=== PATIENT | male | born 1940 | race American Indian/Alaskan Native ===

== ENCOUNTER 2016-11-07 04:19 | Inpatient (IN) | payer MEDICARE, OTHER ==
[2016-11-07 04:30] VITALS: BMI 31.8
--- NOTE | 2016-11-07 04:38 | ED PDOC ---
Arrival/HPI - General Chief Complaint: Back Pain Time Seen by Provider: 11/07/16 04:31 Historian: Patient - History of Present Illness Narrative History of Present Illness (Text): 11/07/16 04:38 Demond Laura is a 75 year old male, whose past medical history includes chronic back pain, who presents to the Emergency department complaining of worsening lower back pain. Patient states he has been experiencing lower back pain for the past few months for which he has been seen and evaluated by PMD. Patient states his lower back pain has worsened over the past 3 days and denies any relief with [id number] pain medication at home. Patient denies any chest pain, shortness of breath, nausea, vomiting, diarrhea, headache, dizziness, or any other complaints. PMD: Dr. Ashely Moise Symptom Onset: Gradual Symptom Course: Unchanged Activities at Onset: Rest, Light Context: Home Past Medical History - Provider Review Nursing Documentation Reviewed: Yes - Infectious Disease Hx of Infectious Diseases: None - Tetanus Immunization Tetanus Immunization: Unknown - Cardiac Hx Hypertension: Yes Hx Pacemaker: No - Neurological Hx Paralysis: No - HEENT Hx Glaucoma: Yes - Hematological/Oncological Hx Blood Transfusions: No Hx Blood Transfusion Reaction: No - Musculoskeletal/Rheumatological Hx Musculoskeletal Disorders: No - Gastrointestinal Other/Comment: colonoscopy - Genitourinary/Gynecological Hx Prostate Problems: Yes (prostate ca with seed implant) - Psychiatric Hx Emotional Abuse: No Hx Physical Abuse: No Hx Substance Use: No - Surgical History Hx Inguinal Hernia Repair: Yes - Anesthesia Hx Anesthesia Reactions: No Hx Malignant Hyperthermia: No - Suicidal Assessment Feels Threatened In Home Enviroment: No Family/Social History - Physician Review Nursing Documentation Reviewed: Yes Family/Social History: Unknown Family HX Smoking Status: Heavy Smoker > 10 Cigarettes Daily Hx Alcohol Use: Yes (shot of whisky once q2wks.) Hx Substance Use: No Hx Substance Use Treatment: No Allergies/Home Meds Allergies/Adverse Reactions: Allergies No Known Allergies Allergy (Verified 03/26/13 12:40) Home Medications: Home Meds Medication Instructions Recorded Confirmed Amlodipine Besylate 10 mg PO QAM 03/26/13 11/07/16 Aspirin [Aspirin Children's] 81 mg PO DAILY 03/26/13 11/07/16 Isosorbide Mononitrate [Imdur] 60 mg PO QAM 11/11/13 06/25/17 Lisinopril 20 mg PO QAM 03/26/13 11/07/16 Tamsulosin [Flomax] 0.4 mg PO DAILY 03/26/13 11/07/16 Atorvastatin [Lipitor] 20 mg PO DAILY 09/17/14 11/07/16 Review of Systems - Physician Review All systems were reviewed & negative as marked: Yes - Review of Systems Constitutional: Normal. absent: Fevers Eyes: Normal ENT: Normal Respiratory: Normal. absent: SOB, Cough Cardiovascular: Normal. absent: Chest Pain Gastrointestinal: Normal. absent: Abdominal Pain, Diarrhea, Nausea Genitourinary Male: Normal. absent: Dysuria, Frequency, Hematuria, Urinary Output Changes Musculoskeletal: Back Pain. absent: Neck Pain Skin: Normal. absent: Rash Neurological: Normal. absent: Headache, Dizziness Endocrine: Normal Hemo/Lymphatic: Normal Psychiatric: Normal Physical Exam Vital Signs Reviewed: Yes Vital Signs Temp Pulse Resp BP Pulse Ox 11/07/16 05:50 97.9 F 72 20 123/72 98 11/07/16 04:27 98.7 F 94 H 19 129/88 97 Temperature: Afebrile Blood Pressure: Normal Pulse: Regular Respiratory Rate: Normal Appearance: Positive for: Well-Appearing, Non-Toxic, Comfortable Pain Distress: None Mental Status: Positive for: Alert and Oriented X 3 - Systems Exam Head: Present: Atraumatic, Normocephalic Pupils: Present: PERRL Extroacular Muscles: Present: EOMI Conjunctiva: Present: Normal Mouth: Present: Moist Mucous Membranes Neck: Present: Normal Range of Motion Respiratory/Chest: Present: Clear to Auscultation, Good Air Exchange. No: Respiratory Distress, Accessory Muscle Use Cardiovascular: Present: Regular Rate and Rhythm, Normal S1, S2. No: Murmurs Abdomen: Present: Normal Bowel Sounds. No: Tenderness, Distention, Peritoneal Signs Back: Present: Normal Inspection. No: CVA Tenderness, Midline Tenderness, Paraspinal Tenderness Upper Extremity: Present: Normal Inspection. No: Cyanosis, Edema Lower Extremity: Present: Normal Inspection. No: Edema Neurological: Present: GCS=15, CN II-XII Intact, Speech Normal Skin: Present: Warm, Dry, Normal Color. No: Rashes Psychiatric: Present: Alert, Oriented x 3, Normal Insight, Normal Concentration Medical Decision Making ED Course and Treatment: 11/07/16 04:38 Impression: 75 year old male complaining of lower back pain. Differential Diagnosis include but are not limited to: chronic back pain vs. intractable back pain Plan: -- Flexeril -- Dilaudid -- Reassess and disposition Progress Notes: 11/07/16 04:57 [place] [employer] COMM[employer]ICATIONS reviewed, pt received 60 Acetaminophen/Codeine #3 on 10/21/2016. 11/07/16 05:30 On re-assessment, pt is still experiencing back pain. Dilaudid ordered. 11/07/16 05:[address] Perry, covering for Dr. Richardson, who is aware and agrees with plan. Accepts pt in to her service. Pt will go to [facility] observation for intractable back pain. Discussed hospital observation plan with pt, who is aware and verbalizes agreement. Labs, EKG ordered. - Lab Interpretations Lab Results: 11/07/16 06:10 11/07/16 06:10 Lab Results 11/07/16 06:10: Sodium 142, Potassium 3.8, Chloride 106, Carbon Dioxide 24, Anion Gap 16, BUN 14, Creatinine 0.9, Est GFR ( Amer) > 60, Est GFR (Non- Af Amer) > 60, Random Glucose 95, Calcium 10.1, Total Bilirubin 0.3, AST 34, ALT 35, Alkaline Phosphatase 90, Total Protein 7.8, Albumin 4.6, Globulin 3.3, Albumin/Globulin Ratio 1.4 11/07/16 06:10: WBC 4.7, RBC 4.77, Hgb 15.1, Hct 43.1, MCV 90.4, MCH 31.7, MCHC 35.0, RDW 14.2, Plt Count 256, MPV 9.1, Gran % 49.6 L, Lymph % (Auto) 38.2 H, [place] % (Auto) 8.4 H, Eos % (Auto) 3.4, Baso % (Auto) 0.4, Gran # 2.35, Lymph # 1.8, [place] # 0.4, Eos # 0.2, Baso # 0.02 - RAD Interpretation Radiology Orders: 11/07/16 07:39 CHEST,ABD,PEL W/IV&PO CONTRAST [CT] Urgent 11/08/16 11:53 BONE SCAN WHOLE BODY [NM] Routine - Medication Orders Current Medication Orders: Amlodipine Besylate (Norvasc) 10 mg PO DAILY [facility] Last Admin: 11/08/16 09:52 Dose: 10 mg Aspirin (Aspirin Chewable) 81 mg PO DAILY [facility] Last Admin: 11/08/16 09:52 Dose: 81 mg Atorvastatin Calcium (Lipitor) 20 mg PO DAILY [facility] Last Admin: 11/08/16 09:52 Dose: 20 mg Famotidine (Pepcid) 20 mg PO 1000,2200 [facility] Last Admin: 11/08/16 22:00 Dose: 20 mg Isosorbide Mononitrate (Imdur) 60 mg PO QAM [facility] Last Admin: 11/08/16 09:51 Dose: 60 mg Latanoprost (Xalatan Opht) 0 ml OU HS [facility] Last Admin: 11/08/16 22:00 Dose: 2.5 ml Lisinopril (Zestril) 20 mg PO DAILY [facility] Last Admin: 11/08/16 09:51 Dose: 20 mg Morphine Sulfate (Morphine) 2 mg IM Q4H PRN PRN Reason: Pain, severe (8-10) Oxycodone HCl (Oxycodone Immediate Release Tab) 20 mg PO Q4 PRN PRN Reason: Pain, moderate (4-7) Last Admin: 11/08/16 18:57 Dose: 20 mg Tamsulosin HCl (Flomax) 0.4 mg PO DAILY [facility] Last Admin: 11/08/16 09:51 Dose: 0.4 mg Discontinued Medications Barium Sulfate (Readi-Cat 2) Confirm Administered Dose 450 ml PO .STK-MED ONE Stop: 11/07/16 08:52 Cyclobenzaprine HCl (Flexeril) 10 mg PO STAT STA Stop: 11/07/16 04:43 Last Admin: 11/07/16 04:56 Dose: 10 mg Hydromorphone HCl (Dilaudid) 1 mg SC STAT STA Stop: 11/07/16 04:43 Last Admin: 11/07/16 04:56 Dose: 1 mg Hydromorphone HCl (Dilaudid) 2 mg SC STAT STA Stop: 11/07/16 05:31 Last Admin: 11/07/16 05:48 Dose: 2 mg Iohexol (Omnipaque 350 100 Ml) Confirm Administered Dose 350 mg .ROUTE .STK-MED ONE Stop: 06/25/17 12:26 Oxycodone HCl (Oxycodone Immediate Release Tab) 10 mg PO Q4 PRN PRN Reason: Pain, moderate (4-7) Last Admin: 11/08/16 07:47 Dose: 10 mg Re-Assess: ANNETTA Pain Assessment Document 11/08/16 08:42 [facility]Rec: 11/08/16 08:42 [facility] [id number][place] Pain Reassessment Is this a pain reassessment? Yes Sleep Is patient sleeping during reassessment? No Presence of Pain Presence of Pain Yes Pain Scale Used Pain Scale Used Numeric Description Intensity of Pain at present 5 - Scribe Statement The provider has reviewed the documentation as recorded by the Scribkarli Luna All medical record entries made by the Scribe were at my direction and personally dictated by me. I have reviewed the chart and agree that the record accurately reflects my personal performance of the history, physical exam, medical decision making, and the department course for this patient. I have also personally directed, reviewed, and agree with the discharge instructions and disposition. Disposition/Present on Arrival - Present on Arrival Any Indicators Present on Arrival: No History of DVT/PE: No History of Uncontrolled Diabetes: No Urinary Catheter: No History of Decub. Ulcer: No History Surgical Site Infection Following: None - Disposition Have Diagnosis and Disposition been Completed?: Yes Diagnosis: Intractable back pain Disposition: HOSPITALIZED Disposition Time: 05:50 Condition: GOOD
[2016-11-07] MEDS ORDERED: HYDROmorphone 1 mg/ml ISec SC STA (04:42)
[2016-11-07] MEDS ORDERED: HYDROmorphone 2 mg/ml ISec SC STA (05:30)
[2016-11-07 06:19] LABS: ADD MANUAL DIFF? NO
[2016-11-07 06:26] LABS: BASO # 0.02 K/mm3 (0.0-2.0); BASO % 0.4 % (0.0-3.0); EOS # 0.2 (0.0-0.7); EOS % 3.4 % (1.5-5.0); GRAN # 2.35 (1.4-6.5); GRAN % 49.6 % (50.0-68.0); HEMATOCRIT 43.1 % (42.0-52.0); LYMPH # 1.8 (1.2-3.4); LYMPH % 38.2 % (22.0-35.0); MEAN CELL VOLUME 90.4 fL (80.0-105.0); MEAN CORPUSCULAR HEMOGLOBIN 31.7 pg (25.0-35.0); MEAN PLATELET VOLUME 9.1 fl (7.0-11.0); MONO # 0.4 (0.1-0.6); MONO % 8.4 % (1.0-6.0); PLATELET COUNT 256 10^3/uL (120.0-450.0); RED CELL DISTRIBUTION WIDTH 14.2 % (11.5-14.5); WHITE BLOOD COUNT 4.7 10^3/ul (4.5-11.0)
[2016-11-07 06:42] LABS: ALB/GLOB RATIO 1.4 (1.1-1.8); ALKALINE PHOSPHATASE 90 U/L (38-133); ALT/SGPT 35 U/L (7-56); AST/SGOT 34 U/L (15-59); BILIRUBIN,TOTAL 0.3 mg/dL (0.2-1.3); BLOOD UREA NITROGEN 14 mg/dL (7-21); CALCIUM 10.1 mg/dL (8.4-10.5); CARBON DIOXIDE 24 mmol/L (21-33); CHLORIDE 106 mmol/L (98-107); GFR AFRICAN-AMERICAN > 60; GLUCOSE,RANDOM 95 mg/dL (70-110); POTASSIUM 3.8 mmol/L (3.6-5.0); SODIUM 142 mmol/L (132-148); TOTAL PROTEIN 7.8 g/dL (5.8-8.3)
[2016-11-07] MEDS ORDERED: Morphine 2 mg/ml ISec IM PRN (07:44)
[2016-11-07] MEDS ORDERED: Barium Sulfate Susp 2.1% w/v, 2.0% w/w 450 mL Bottle PO ONE (08:51)
[2016-11-07] MEDS ORDERED: Non Formulary Medication (Amlodipine Besylate [Amlodipine Besylate] 10 MG) PO SCH (10:00)
[2016-11-07] MEDS ORDERED: ASPIRIN 81 MG PO SCH (10:00)
[2016-11-07] MEDS ORDERED: LISINOPRIL 20 MG PO SCH (10:00)
[2016-11-07] MEDS ORDERED: Iohexol 350 MG/100 ML VIAL ONE (12:25)
--- NOTE | 2016-11-07 14:36 | CT ---
PROCEDURE: CT Chest, Abdomen and Pelvis with intravenous contrast HISTORY: r/o metastatic ds, prostate cancer COMPARISON: None. TECHNIQUE: IV dose administered: 100 cc of Omni 350 Radiation dose: Total exam DLP = 1361 mGy-cm. This CT exam was performed using one or more of the following dose reduction techniques: Automated exposure control, adjustment of the mA and/or kV according to patient size, and/or use of iterative reconstruction technique. FINDINGS: CT CHEST WITH CONTRAST: LUNGS: Clear. No nodule, mass or consolidation. MEDIASTINUM: Unremarkable. Normal caliber aorta and pulmonary arterial trunk. No aortic dissection. Normal size heart. LYMPH NODES: Unremarkable. PLEURA: Unremarkable. No pneumothorax. No pleural fluid. BONES: Unremarkable. OTHER FINDINGS: None. CT ABDOMEN AND PELVIS: LIVER: Unremarkable. No gross lesion or ductal dilatation. GALLBLADDER AND BILE DUCTS: Unremarkable. PANCREAS: Unremarkable. No gross lesion or ductal dilatation. SPLEEN: Unremarkable. ADRENALS: Unremarkable. No mass. KIDNEYS AND URETERS: Unremarkable. No hydronephrosis. No solid mass. VASCULATURE: Unremarkable. No aortic aneurysm. BOWEL: Unremarkable. No obstruction. No gross mural thickening. APPENDIX: Normal appendix. PERITONEUM: Unremarkable. No free fluid. No free air. LYMPH NODES: Unremarkable. No enlarged lymph nodes. BLADDER: Unremarkable. REPRODUCTIVE: Metallic seed implants are seen in the prostate. There is no evidence of a adenopathy or local invasion BONES: No acute fracture. OTHER FINDINGS: None. IMPRESSION: No evidence of metastatic disease
--- NOTE | 2016-11-07 16:21 | HP ---
HISTORY OF PRESENT ILLNESS: The patient is a 75-year-old male, presented to the ED with exacerbation of the back pain. It was radiating to both legs. He has history of chronic back pain. He also has history of prostate cancer, had metallic radiation seed implants for the prostate cancer. He follows with Dr. Robles, urology, for prostate cancer. He denies any weight loss. No shortness of breath, no nausea, no vomiting. He also has history of hypertension. Blood pressure controlled with current medications. Cardiovascular, no recent episodes. No chest pain. PAST MEDICAL HISTORY: Prostate cancer status post radiation seed implanted, hypertension. PAST SURGICAL HISTORY: Inguinal hernia repair. FAMILY HISTORY: Noncontributory. No positive history in mother and father. PERSONAL HISTORY: Heavy smoker, smokes more than 10 cigarettes a day. Drinks a few times a week. SOCIAL HISTORY: Lives at home. ALLERGIES: No known drug allergies. HOME MEDICATIONS: Norvasc 10 mg daily, aspirin 81 mg daily, Imdur 60 mg daily, lisinopril 20 mg q.a.m., Flomax 0.4 mg daily, Lipitor 20 mg daily. REVIEW OF SYSTEMS: As per HPI. Rest of 12-point reviewed and negative. PHYSICAL EXAMINATION: GENERAL: Comfortable in bed, no acute distress. VITAL SIGNS: Temperature 98.7, heart rate is 94 per minute, respiratory 19 per minute, blood pressure 129/88, pulse ox is 97% on room air. HEENT: Head atraumatic, normocephalic. Oral mucosa moist. Rest of the HEENT exam normal. NECK: Supple. No lymphadenopathy. CHEST: Air entry present, equal bilateral. No added sound. CARDIOVASCULAR: S1, S2 normal. No murmur, no gallop. ABDOMEN: Soft, nontender, no hepatosplenomegaly. EXTREMITIES: No edema. NEUROLOGIC: Alert, oriented x 3, no sensorimotor deficit. SKIN: No petechia, no rash. PSYCHIATRIC: Alert, oriented x 3, no sensorimotor deficit. ASSESSMENT: 1. Chronic back pain, now acute exacerbation radiating to both lower extremities. 2. History of prostate cancer. 3. History of hypertension. PLAN: Since he has history of prostate cancer, back pain is concerning for metastatic disease. I will order CAT scan chest, abdomen, and pelvis to rule out any mass lesions without contrast. We will also schedule the bone scan to rule out metastatic bone disease. We will also do multiple myeloma workup, SPEP , immunofixation, light chain assay. Morphine 2 mg q. 4 hours p.r.n. for severe pain., oxycodone 10 mg q. 4 hours p.r.n. for moderate pain. He is on Flomax 0.4 mg daily. We will continue that. Continue lisinopril 10 mg daily, Imdur 60 mg daily, Pepcid 20 mg p.o. b.i.d., Lipitor 20 mg daily, Norvasc 10 mg daily, aspirin 81 mg daily. CAT scan of the chest, abdomen, pelvis ordered. Results reviewed. No mass lesion in chest, abdomen, pelvis. BP controlled on current meds. Discussed with the patient. Melva Perry MD cc: [id number] TT: 11/07/2016 16:21:03 en MTDD
[2016-11-07] MEDS: oxyCODONE 10 mg Immediate Release Tab PO PRN ×2 (19:05→23:11)
[2016-11-07] MEDS: Latanoprost 2.5 ml Opht Soln OU SCH (21:41)
--- NOTE | 2016-11-08 01:09 | CARD ---
APPROVED REPORT EKG Measurement Heart [id number] <Conclusion> Sinus bradycardia with 1st degree AV block Left axis deviation Right bundle branch block Moderate voltage criteria for LVH, may be normal variant Cannot rule out Septal infarct, age undetermined Abnormal ECG
[2016-11-08] MEDS: oxyCODONE 10 mg Immediate Release Tab PO PRN (07:47)
--- NOTE | 2016-11-08 09:57 | PN ---
DATE: 11/08/2016 DATE: 11/08/2016 SUBJECTIVE: The patient says he continues to have back pain. The pain medication is not helping. Viji calvillo said the right leg pain has been there for 3 months. He had been taking pain medications at home. PHYSICAL EXAMINATION: VITAL SIGNS: Temperature is 98. Pulse is 76. Blood pressure is 149/89, respirations 18, O2 saturat ion 99%. GENERAL: The patient is comfortable, in no acute distress. HEENT: Anicteric sclerae. Moist mucosa. NECK: No JVD or adenopathy. CARDIAC: S1/S2. No murmurs. No rubs. Regular. RESPIRATORY: Clear to auscultation bilaterally. No wheezes, rales, or rhonchi. Good air entry. ABDOMEN: Bowel sounds are positive, soft, nontender, and nondistended. EXTREMITIES: No edema. Has 1+ pulses. CT of the chest, abdomen, and pelvis done shows no evidence of metastatic disease. ASSESSMENT: 1. Acute on chronic back pain. 2. History of prostate cancer. 3. Hypertension. 4. Glaucoma. 5. Dyslipidemia. PLAN: The patient is currently on aspirin. He is going to continue with Flomax for his BPH. He is on Lipitor for dyslipidemia. The patient is on morphine for pain. He is on amlodipine for hypertens ion. He is on 10 mg of oxycodone. He says it is not helpful. I will increase his oxycodone dosage to 20 mg. He is going to continue in the hospital for pain management. He is getting increased dose s of his pain medications. He has a bone scan that has been ordered. I will get physical therapy to evaluate him as well. Patrick Richardson MD cc: [id number] TT: 11/08/2016 09:56:22 Confirmation # [id number] Dictation # [id number]
[2016-11-08 16:50] VITALS: RESP 20
[2016-11-08] MEDS: oxyCODONE 20 mg Immediate Release Tab PO PRN (18:57)
[2016-11-08] MEDS: Latanoprost 2.5 ml Opht Soln OU SCH (22:00)
[2016-11-09] MEDS: oxyCODONE 20 mg Immediate Release Tab PO PRN ×2 (05:29→17:52)
[2016-11-09 05:40] LABS: TOTAL PROTEIN, SERUM 5.7 g/dL (6.1-8.1)
[2016-11-09 11:26] LABS: BETA 1 GLOBULIN 0.3 g/dL (0.4-0.6); BETA 2 GLOBULIN 0.3 g/dL (0.2-0.5); GAMMA GLOBULIN 0.7 g/dL (0.8-1.7)
--- NOTE | 2016-11-09 17:18 | US ---
HISTORY: Leg pain and swelling. Evaluate for DVT PHYSICIAN(S): Fredi Lanza MD. TECHNIQUE: Duplex sonography and color-flow Doppler with graded compression were used to evaluate the deep venous systems of both lower extremities. FINDINGS: The visualized deep venous systems of both lower extremities are sonographically normal and compressible. Normal wave forms and augmentation are seen. There is no sonographic evidence for deep venous thrombosis in the visualized segments of both lower extremities. IMPRESSION: No sonographic evidence for deep venous thrombosis in the visualized segments of both lower extremities.
[2016-11-09] MEDS: Latanoprost 2.5 ml Opht Soln OU SCH (22:10)
[2016-11-10 07:41] VITALS: TEMP 98.1; O2SAT 98
--- NOTE | 2016-11-10 09:09 | CP.PCM.PN ---
Subjective - Date & Time of Evaluation Date of Evaluation: 11/10/16 Time of Evaluation: 09:04 - Subjective Subjective: Pt with pain in legs. He is able to ambulate. His pain is controlled with meds. Eating ok. No incontinence. Objective - Vital Signs/Intake and Output Vital Signs (last 24 hours): Temp Pulse Resp BP Pulse Ox 98.1 F 59 L 20 145/82 98 11/10/16 07:39 11/10/16 07:39 11/10/16 07:39 11/10/16 07:39 11/10/16 07:39 Intake and Output: 11/10/16 11/10/16 06:59 18:59 Intake Total 900 Balance 900 - Medications Medications: Current Medications Amlodipine Besylate (Norvasc) 10 mg PO DAILY [facility] Last Admin: 11/09/16 09:39 Dose: 10 mg Aspirin (Aspirin Chewable) 81 mg PO DAILY [facility] Last Admin: 11/09/16 09:40 Dose: 81 mg Atorvastatin Calcium (Lipitor) 20 mg PO DAILY [facility] Last Admin: 11/09/16 09:40 Dose: 20 mg Famotidine (Pepcid) 20 mg PO 1000,2200 [facility] Last Admin: 11/09/16 22:09 Dose: 20 mg Isosorbide Mononitrate (Imdur) 60 mg PO QAM [facility] Last Admin: 11/09/16 09:45 Dose: 60 mg Latanoprost (Xalatan Opht) 0 ml OU HS [facility] Last Admin: 11/09/16 22:10 Dose: 2.5 ml Lisinopril (Zestril) 20 mg PO DAILY [facility] Last Admin: 11/09/16 09:39 Dose: 20 mg Morphine Sulfate (Morphine) 2 mg IM Q4H PRN PRN Reason: Pain, severe (8-10) Oxycodone HCl (Oxycodone Immediate Release Tab) 20 mg PO Q4 PRN PRN Reason: Pain, moderate (4-7) Last Admin: 11/09/16 17:52 Dose: 20 mg Tamsulosin HCl (Flomax) 0.4 mg PO DAILY [facility] Last Admin: 11/09/16 09:39 Dose: 0.4 mg - Constitutional Appears: Well, No Acute Distress - Head Exam Head Exam: ATRAUMATIC, NORMAL INSPECTION - Eye Exam Eye Exam: Normal appearance Pupil Exam: NORMAL ACCOMODATION - ENT Exam ENT Exam: Mucous Membranes Moist, Normal Exam - Neck Exam Neck Exam: Normal Inspection - Respiratory Exam Respiratory Exam: NORMAL BREATHING PATTERN - Cardiovascular Exam Cardiovascular Exam: REGULAR RHYTHM, RRR, +S1, +S2 - GI/Abdominal Exam GI & Abdominal Exam: Soft, Normal Bowel Sounds, Organomegaly (none) - Extremities Exam Extremities Exam: Full ROM, Normal Inspection - Neurological Exam Neurological Exam: Alert, CN II-XII Intact, Normal Gait, Oriented x3 - Psychiatric Exam Psychiatric exam: Normal Affect, Normal Mood Assessment and Plan - Assessment and Plan (Free Text) Assessment: 1. Acute on chronic back pain. 2. History of prostate cancer. 3. Hypertension. 4. Glaucoma. 5. Dyslipidemia. Plan: The patient is currently on aspirin. LE doppler done. He has had an MRI in the past. He was advised to f/u with PMD and can get a repeat MRI if needed. He is ambulating and pain is controlled. He is going to continue with Flomax for his BPH. He is on Lipitor for dyslipidemia. He is on amlodipine for hypertension. He is on 10 mg of oxycodone. He says it is not helpful. I will increase his oxycodone dosage to 20 mg. He is going to continue in the hospital for pain management. He is getting increased doses of his pain medications. He has a bone scan that has been ordered. physical therapy Should be able to do home if bone scan is normal.
[2016-11-10 09:21] VITALS: BP 147/80; PULSE 63
--- NOTE | 2016-11-10 11:07 | NM ---
PROCEDURE: Whole Body Bone Scan HISTORY: prostate cancer, r/o bone mets COMPARISON: None available. TECHNIQUE: Following administration of 28.2 miCu of Tc MDP multiplanar whole body images were obtained. FINDINGS: Evidence for bony metastatic disease: None. Degenerative uptake: Sternoclavicular joint and left knee as well as shoulder joints Physiologic uptake: Normal physiologic activity in the kidneys. Other findings: None. IMPRESSION: No evidence of bony metastatic disease.
[2016-11-10 12:50] LABS: KAPPA/LAMBDA FREE RATIO 2.01 (0.26-1.65)
== END 2016-11-10 15:31 | disposition home or self-care (01) | DRG 552 ==
LOC: ED 04:19 → ERH 05:49 → 5RNO 07:03 → OBSVTOIN 11-08 09:53
PROVIDERS: ADMIT Internal Medicine Nephrology; ATTEND Internal Medicine Nephrology
DX: M54.5 Low back pain (principal); I10 Essential (primary) hypertension; G89.29 Other chronic pain; H40.9 Unspecified glaucoma; E78.5 Hyperlipidemia, unspecified; F17.210 Nicotine dependence, cigarettes, uncomplicated; Z85.46 Personal history of malignant neoplasm of prostate; Z79.82 Long term (current) use of aspirin; Z79.899 Other long term (current) drug therapy; Z92.3 Personal history of irradiation

== ENCOUNTER 2017-04-13 09:26 | Emergency (ER) | payer MEDICARE ==
[2017-04-13 09:26] VITALS: BMI 31.8
[2017-04-13 09:57] VITALS: RESP 17
[2017-04-13 10:31] VITALS: BP 107/62; PULSE 79; TEMP 97.9; O2SAT 96
--- NOTE | 2017-04-13 13:10 | ED PDOC ---
Arrival/HPI - General Chief Complaint: ENT Problem Time Seen by Provider: 04/13/17 10:07 Historian: Patient - History of Present Illness Narrative History of Present Illness (Text): 04/13/17 10:07 A 76 year old male, whose past medical history includes chronic back pain, presents to the emergency department complaining of "clogged ear". Patient reports hearing clicking sounds and water when swallowing. Patient deneis of any fever, present discharge, or any other complaints. No PMD Symptom Onset: Sudden Symptom Course: Unchanged Past Medical History - Provider Review Nursing Documentation Reviewed: Yes - Infectious Disease Hx of Infectious Diseases: None - Tetanus Immunization Tetanus Immunization: Unknown - Cardiac Hx Hypertension: Yes Hx Pacemaker: No - Pulmonary Hx Respiratory Disorders: No - Neurological Hx Neurological Disorder: No Hx Paralysis: No - HEENT Hx HEENT Disorder: Yes Hx Glaucoma: Yes - Renal Hx Renal Disorder: No - Endocrine/Metabolic Hx Endocrine Disorders: No - Hematological/Oncological Hx Blood Disorders: No Hx Blood Transfusions: No Hx Blood Transfusion Reaction: No - Integumentary Hx Dermatological Disorder: No - Musculoskeletal/Rheumatological Hx Musculoskeletal Disorders: No - Gastrointestinal Other/Comment: colonoscopy - Genitourinary/Gynecological Hx Genitourinary Disorders: Yes Hx Prostate Problems: Yes (prostate ca with seed implant) - Psychiatric Hx Psychophysiologic Disorder: No Hx Emotional Abuse: No Hx Physical Abuse: No Hx Substance Use: No - Surgical History Hx Inguinal Hernia Repair: Yes - Anesthesia Hx Anesthesia Reactions: No Hx Malignant Hyperthermia: No - Suicidal Assessment Feels Threatened In Home Enviroment: No Family/Social History - Physician Review Nursing Documentation Reviewed: Yes Family/Social History: No Known Family HX Smoking Status: Heavy Smoker > 10 Cigarettes Daily Hx Alcohol Use: Yes (shot of whisky once q2wks.) Hx Substance Use: No Hx Substance Use Treatment: No Allergies/Home Meds Allergies/Adverse Reactions: Allergies No Known Allergies Allergy (Verified 04/13/17 09:57) Home Medications: Home Meds Medication Instructions Recorded Confirmed Isosorbide Mononitrate [Imdur] 60 mg PO QAM 03/26/13 04/13/17 Tamsulosin [Flomax] 0.4 mg PO DAILY 03/26/13 04/13/17 Atorvastatin [Lipitor] 20 mg PO DAILY 09/17/14 04/13/17 Aspirin [Adult Low Dose Aspirin EC] 81 mg PO DAILY 04/13/17 04/13/17 Lisinopril [Zestril] 20 mg PO DAILY 04/13/17 04/13/17 amLODIPine [Norvasc] 10 mg PO DAILY 04/13/17 04/13/17 Review of Systems - Physician Review All systems were reviewed & negative as marked: Yes - Review of Systems Constitutional: absent: Fevers ENT: Other (:"clogged ears"; no present discharge from ears) Physical Exam Vital Signs Reviewed: Yes Vital Signs Temp Pulse Resp BP Pulse Ox 04/13/17 10:30 97.9 F 79 17 107/62 96 04/13/17 09:52 97.7 F 81 17 129/79 94 L Temperature: Afebrile Blood Pressure: Normal Pulse: Regular Respiratory Rate: Normal Appearance: Positive for: Well-Appearing Pain Distress: None Mental Status: Positive for: Alert and Oriented X 3 - Systems Exam Head: Present: Atraumatic, Normocephalic Pupils: Present: PERRL Extroacular Muscles: Present: EOMI Conjunctiva: Present: Normal Ears: Present: Fluid (behind left TM). No: Erythema Mouth: Present: Moist Mucous Membranes Neck: Present: Normal Range of Motion Respiratory/Chest: Present: Clear to Auscultation, Good Air Exchange. No: Respiratory Distress, Accessory Muscle Use Cardiovascular: Present: Regular Rate and Rhythm, Normal S1, S2. No: Murmurs Abdomen: Present: Normal Bowel Sounds. No: Tenderness, Distention, Peritoneal Signs Back: Present: Normal Inspection Upper Extremity: Present: Normal Inspection. No: Cyanosis, Edema Lower Extremity: Present: Normal Inspection. No: Edema Neurological: Present: GCS=15, CN II-XII Intact, Speech Normal Skin: Present: Warm, Dry, Normal Color. No: Rashes Psychiatric: Present: Alert, Oriented x 3, Normal Insight, Normal Concentration Medical Decision Making ED Course and Treatment: 04/13/17 10:12 Impression: 76 year old male with "clogged ears". Physical exam shows fluids behind left TM, no erythema. Plan: -- Reassess and disposition Prior Visits: Notes and results from previous visits were reviewed. Patient was last seen in the emergency department on 11/07/2016 for worsening lower back pain. Patient was admitted. Progress Notes: On re-evaluation, patient feels better and is in no acute distress. I have discussed the results and plan with the patient, who expresses understanding. Patient in agreement with plan to be discharged home. Patient is stable for discharge. Patient was instructed to follow up with physician or return if symptoms worsen or new concerning symptoms arise. - Scribe Statement The provider has reviewed the documentation as recorded by the Juan Miguel Roberts Provider Scribe Attestation: All medical record entries made by the Scribe were at my direction and personally dictated by me. I have reviewed the chart and agree that the record accurately reflects my personal performance of the history, physical exam, medical decision making, and the department course for this patient. I have also personally directed, reviewed, and agree with the discharge instructions and disposition. Disposition/Present on Arrival - Present on Arrival Any Indicators Present on Arrival: No History of DVT/PE: No History of Uncontrolled Diabetes: No Urinary Catheter: No History of Decub. Ulcer: No History Surgical Site Infection Following: None - Disposition Have Diagnosis and Disposition been Completed?: Yes Diagnosis: Otitis media Disposition: HOME/ ROUTINE Disposition Time: 10:20 Condition: GOOD Discharge Instructions (ExitCare): Otitis Media (ED) Additional Instructions: Thank you for letting us take care of you today. The emergency medical care you received today was directed at your acute symptoms. If you were prescribed any medication, please fill it and take as directed. It may take several days for your symptoms to resolve. Return to the Emergency Department if your symptoms worsen, do not improve, or if you have any other problems. Please contact your doctor or call one of the physicians/clinics you have been referred to that are listed on the Patient Visit Information form that is included in your discharge packet. Bring any paperwork you were given at discharge with you along with any medications you are taking to your follow up visit. Our treatment cannot replace ongoing medical care by a primary care provider (PCP) outside of the emergency department. Thank you for allowing the [facility] team to be part of your care today. Follow up with your doctor in 1-2 days for re-evaluation and further management. Prescriptions: Amoxicillin 875 mg PO BID #14 tablet Loratadine [Claritin] 10 mg PO DAILY #20 tab Referrals: Hal Moise MD [Family Provider] - Follow up with primary Forms: [email or web address] ([place]an)
== END 2017-04-13 10:53 | disposition home or self-care (01) ==
LOC: ED 09:26
DX: H66.90 Otitis media, unspecified, unspecified ear (principal); I10 Essential (primary) hypertension; F17.210 Nicotine dependence, cigarettes, uncomplicated; Z85.46 Personal history of malignant neoplasm of prostate